=== PATIENT | female | born 2000 | race Caucasian/White ===

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

== ENCOUNTER 2023-10-28 20:59 | Emergency (ER) | payer MEDICAID, OTHER ==
[2023-10-28] MEDS ORDERED: Acetaminophen 500 MG TAB ONE (21:40)
[2023-10-28 21:59] LABS: SARS-CoV-2 E Target Negative; SARS-CoV-2 N2 Target Negative; SARS-CoV-2 NAA Rapid Test Not Detected (NotDetected); SARS-CoV-2 RdRP gene Negative
== END 2023-10-28 22:20 | disposition home or self-care (01) ==
LOC: MADERS 20:59
DX: J06.9 Acute upper respiratory infection, unspecified (principal); F17.290 Nicotine dependence, other tobacco product, uncomplicated
CPT/HCPCS: 87804; 99284; U0002